=== PATIENT | male | born 1960 | race Caucasian/White ===

== ENCOUNTER 2019-07-24 13:52 | Observation (INO) | payer OTHER, SELFPAY ==
[2019-07-24] VITALS (7 sets, daily range): BP systolic 115–143; BP diastolic 56–73; PULSE 62–76; RESP 16–18; TEMP 36.5–36.8; O2SAT 96–100; BMI 21.8
--- NOTE | ~2019-07-24 | CT_ITS ---
EXAMINATION: CT BRAIN W/O DATE: 07/24/2019 14:49 INDICATION: Headache. TECHNIQUE: Computed tomography (CT) of the head was performed without intravenous contrast. The dose- length product was 605.33 mGy-cm. The mA was adjusted according to patient size. Iterative reconstruc tion technique was employed. COMPARISON: No prior studies for comparison. FINDINGS: Normal brain parenchymal volume for age. Normal cooper-white differentiation. No acute intrac ranial hemorrhage, infarction, mass or mass effect. No ventriculomegaly or midline shift. Midline sagittal images demonstrate a normal corpus callosum, c raniovertebral junction and sella turcica. Basilar cisterns are patent. Paranasal sinuses and mastoids are pneumatized. No depressed skull fractures. IMPRESSION: 1. No acute intracranial abnormality. Reviewed, dictated and finalized at location A.
--- NOTE | ~2019-07-24 | NM_ITS ---
EXAMINATION: NM criselda stress w perfusion DATE: 07/25/2019 11:32 INDICATION: Chest pain. TECHNIQUE: Rest images were obtained following intravenous administration of 10 mCi Tc99m tetrofosmin (Myoview). The patient was infused intravenously with Lexiscan (regadenoson). Then, 31.77 mCi Tc99m tetrofosmin (Myoview) was administered intravenously, and stress images were obtained. Data was recon structed into short axis and horizontal and vertical long axis SPECT images. Gated SPECT images were also obtained. COMPARISON: Chest CT 10/26/2010 FINDINGS: There is no definite reversible or fixed perfusion abnormality to suggest ischemia or infar ction. There is no segmental wall motion abnormality. Left ventricular ejection fraction measures 5 6%. IMPRESSION: 1. No definite ischemia or infarct. 2. Normal left ventricular ejection fraction measuring 56%. Reviewed, dictated and finalized at location A.
--- NOTE | ~2019-07-24 | XR_ITS ---
EXAMINATION: XR chest 2V 07/24/2019 14:54 INDICATION: Shortness of breath. Midsternal chest pain. History of smoking. PROCEDURE: 2 view chest COMPARISON: 10/08/2008 FINDINGS: The lungs are clear. The cardiomediastinal silhouette is within normal limits. There are no pleural effusions. There is no pneumothorax suspected. There is calcified mediastinal lymph node s consistent with chronic granulomatous disease. The lungs are hyperinflated which is consistent with , but not diagnostic of chronic obstructive pulmonary disease. IMPRESSION: 1: NO ACUTE CARDIOPULMONARY DISEASE. Reviewed, dictated and finalized at location A.
--- NOTE | 2019-07-24 14:20 | ECG_ITS ---
Measurements Intervals [place] Rate: 72 P: 66 VA: 142 QRS: -23 QRSD: 146 T: 33 QT: 402 QTc: 442 Interpretive Statements SINUS RHYTHM RIGHT BUNDLE BRANCH BLOCK VOLTAGE CRITERIA FOR LVH MINIMAL Q WAVES- LATERAL LEADS ABNORMAL ECG Electronically Signed On 07-24-2019 16:02:13 CDT by James Desouza D.O.
--- NOTE | 2019-07-24 14:21 | ED.CHESTPAIN ---
HPI - Chest Pain General Chief Complaint: Syncope Stated Complaint: NEAR SYNCOPAL EVENT Time Seen by Provider: 07/24/19 14:05 Source: patient Limitations: no limitations History of Present Illness HPI narrative: Pt c/o chest pain, left chest, mild, non radiating, started today, accompanied by a near syncopal episode at work and dizziness. MD complaint: chest pain Pain radiation: none Relieving factors: nothing Exacerbating factors: nothing Treatment prior to arrival: none Risk Factors Coronary artery disease risk factors: smoking history, hyperlipidemia and hypertension Related Data Home Medications Medication Instructions Recorded Confirmed No Home Medications 07/24/19 07/24/19 Allergies Allergy/AdvReac Type Severity Reaction Status Date / Time No Known Allergies Allergy Verified 07/24/19 17:40 Review of Systems Review of Systems: All systems reviewed & are unremarkable except as noted in HPI and below Constitutional: Constitutional: Denies body ache(s), Denies chills, Denies excessive sweating, Denies fatigue, Denies fever(s), Denies headache(s), Denies lethargy, Denies malaise, Denies weakness and Denies weight loss Eyes: Eyes: Denies blurry vision, Denies change in vision and Denies loss of vision ENT: Denies dizziness, Denies ear discharge, Denies headache(s), Denies lip swelling, Denies epistaxis, Denies nasal congestion, Denies neck pain, Denies throat swelling and Denies tongue swelling Cardiovascular: Cardiovascular: Denies diaphoresis, Denies rapid heart rate, Denies edema, Denies irregular heart rhythm, Denies lightheadedness, Denies palpitations, Denies dyspnea and Denies dyspnea on exertion Respiratory: Respiratory: Denies chest congestion, Denies cough, Denies hemoptysis, Denies dyspnea and Denies dyspnea on exertion Gastrointestinal: Gastrointestinal: Denies abdominal pain, Denies melena, Denies hematochezia, Denies diarrhea, Denies nausea, Denies vomiting and Denies hematemesis Musculoskeletal: Musculoskeletal: Denies abnormal gait, Denies deformity, Denies joint swelling, Denies limited range of motion, Denies neck pain and Denies numbness Neurologic: Denies Abnormal speech present, Denies abnormal gait, Denies confusion, Denies headache(s), Denies focal weakness, Denies loss of vision, Denies numbness, Denies Other visual disturbances, Denies Sensory deficit (Neuro) and Denies weakness Psychiatric: Psychiatric: Denies confusion, Denies depression, Denies auditory hallucinations, Denies homicidal ideation and Denies suicidal ideation Endocrine: Endocrine: Denies cold intolerance, Denies excessive sweating, Denies fatigue, Denies heat intolerance and Denies palpitations Hematologic/Lymphatic: Hematologic/Lymphatic: Denies easy bleeding and Denies easy bruising Allergic/Immunologic: Allergic/Immunologic: Denies lip swelling, Denies throat swelling and Denies tongue swelling PMFSH Past Medical History Medical History (Updated 07/24/19 @ 20:51 by Irasema Hylton NP) Hyperlipidemia No longer takes his cholesterol medicine. Surgical History Surgical History (Updated 07/24/19 @ 20:51 by Irasema Hylton NP) H/O rectal polypectomy History of back surgery Lower back 1996 Family History Family History Mother Diabetes mellitus Congestive heart failure Acute myocardial infarction Grandparent Congestive heart failure Cerebrovascular accident Acute myocardial infarction Social History Social History (Updated 07/24/19 @ 20:54 by Irasema Hylton NP) Social History: Patient lives with his Joyce who is his durable power of foreign language teacher for healthcare. He has 3 children. The patient smokes anywhere from half a pack to pack a cigarettes a day. He works at [employer] in the [employer]. Patient desires to be a full code. He does not use any alcohol marijuana or illicit drugs. Smoking packs per day: 1 Smoking cigarettes pe
[2019-07-24 14:33] LABS: Basophils Absolute Auto 0.1 K/mm3 (0.0-0.1); Basophils Percent Auto 1.1 % (0.2-1.2); Eosinophils Absolute Auto 0.3 K/mm3 (0-0.3); Eosinophils Percent Auto 3.4 % (0-4.4); Hematocrit 43.9 % (42.0-52.0); Hemoglobin 14.8 g/dL (14.0-18.0); Immature Granulocyte Absolute 0.04 K/mm3 (0.00-0.031); Immature Granulocyte Percent A 0.4 % (0-0.5); Lymphocytes Absolute Auto 3.34 K/mm3 (0.9-3.2); Lymphocytes Percent Auto 34.3 % (18.3-44.2); Mean Corpuscular HGB Conc 33.7 g/dl (32-36); Mean Corpuscular Hemoglobin 31.4 pg (26-34); Mean Platelet Volume 10.1 fl (7.4-10.4); Monocytes Absolute Auto 0.8 K/mm3 (0.1-0.6); Monocytes Percent Auto 7.7 % (2.6-8.5); Neutrophils Absolute Auto 5.2 K/mm3 (1.3-6.7); Neutrophils Percent Auto 53.1 % (45.5-73.1); Platelet Count Result 240 k/mm3 (150-375); Red Blood Count 4.72 M/mm3 (4.6-6.20); Red Cell Distribution Width 13.5 % (11.5-14.5); White Blood Count 9.7 K/mm3 (4.5-10.0)
[2019-07-24] MEDS: ASPIRIN 81 MG CHEWABLE TABLET 324 MG PO (14:41)
--- NOTE | 2019-07-24 14:41 | PC.NURSE ---
Pt given 243mg of aspirin, as has already taken 81mg po at home.
[2019-07-24 14:44] LABS: INR 0.9; Prothrombin Time 11.7 Seconds (11.1-14.7)
[2019-07-24 14:45] LABS: Blood Urea Nitrogen 27 mg/dL (9-20); Calcium 8.8 mg/dL (8.4-10.2); Carbon Dioxide 26 mmol/L (22-30); Chloride 105 mmol/L (98-107); Estimated CRCL calculation 91 ml/min; Estimated Glomerular Filt Rate > 60; Glucose 138 mg/dL (75-110); Partial Thromboplastin Time 28.4 SECONDS (22.3-36.8); Potassium 3.9 mmol/L (3.4-5.0); Sodium 137 mmol/L (137-145)
[2019-07-24 14:57] LABS: Troponin I < 0.012 ng/mL (0.000-0.034)
[2019-07-24] MEDS: SODIUM CHLORIDE 0.9% IV 1,000 ML 999 ML IV CONT (15:32)
--- NOTE | 2019-07-24 15:59 | PC.NURSE ---
Attempt to call report to IMU, floor unable to take.
--- NOTE | 2019-07-24 18:06 | ADMGEN ---
This patient, Jonathan Aguirre, was admitted to IMU Room 202-01 on 07/24/2019 at 1625. Patient/family oriented to hospital policies and general routines including ID bracelet, bed and alarms, visiting hours, pain management, procedures, bathroom and other care routines, personal items, smoking policy, room service/diet, and visiting hours. Valuables list has been completed. Information on how to activate the Rapid Response Team has been discussed. Patient/Family are encouraged to report perceived risks to care and to ask questions if they do not understand what they are told or what they should do.
[2019-07-24 18:14] LABS: Troponin I < 0.012 ng/mL (0.000-0.034)
--- NOTE | 2019-07-24 20:42 | PM.IMHP ---
H&P: HPI History of Present Illness Chief complaint: chest pain,near syncope Narrative: Jonathan Aguirre is a 59 year old male who tells me that he has been having chest pain on and off for the last couple years. The patient stated that he has had 2 stress test in the past that were inconclusive. He stated that he had a treadmill stress test the patient stated when he had a stress test in the past he could not get this heart rate up. Patient stated that today he went to lift his arms up he did not have anything in his arms but felt this sharp pain that started around his chest it encases chest moved up around his neck and his back. He was short of breath with it. And resolved on his own. Troponins have been negative so far. Patient was only given IV fluids and an aspirin by ED physician. Patient has no further complaints of any chest pain. Patient stated that he has some fullness in the back of his head which is chronic. Date of service is 07/24/2019 Review of Systems Review of Systems: All systems reviewed & are unremarkable except as noted in HPI and below Constitutional: Constitutional: Reports as per HPI and Reports no additional constitutional complaints Eyes: Eyes: Reports as per HPI and Reports no additional eye complaints ENT: Reports system reviewed and no additional complaints, except as documented and Reports Normal hearing present Cardiovascular: Cardiovascular: Reports no additional cardiovascular complaints Respiratory: Respiratory: Reports no additional respiratory complaints and Reports no additional respiratory complaints Gastrointestinal: Gastrointestinal: Reports as per HPI and Reports no additional gastrointestinal complaints Musculoskeletal: Musculoskeletal: Reports no additional musculoskeletal complaints Integumentary/Breasts: Skin/Breast: Reports system reviewed and no additional complaints, except as docu and Reports as per HPI Neurologic: Reports system reviewed and no additional complaints, except as documented, Reports as per HPI and Reports Normal hearing present Psychiatric: Psychiatric: Reports no additional psychiatric complaints and Reports as per HPI Endocrine: Endocrine: Reports no additional endocrine complaints Hematologic/Lymphatic: Hematologic/Lymphatic: Reports no additional hematologic/lymphatic complaints Allergic/Immunologic: Allergic/Immunologic: Reports no additional allergic/immunologic complaints [facility] Past Medical History Medical History (Updated 07/24/19 @ 20:51 by Irasema Hylton NP) Hyperlipidemia No longer takes his cholesterol medicine. Surgical History Surgical History (Updated 07/24/19 @ 20:51 by Irasema Hylton NP) H/O rectal polypectomy History of back surgery Lower back 1995 Family History Family History Mother Diabetes mellitus Congestive heart failure Acute myocardial infarction Grandparent Congestive heart failure Cerebrovascular accident Acute myocardial infarction Social History Social History (Updated 07/24/19 @ 20:54 by Irasema Hylton NP) Social History: Patient lives with his Joyce who is his durable power of tax associate attorney for healthcare. He has 3 children. The patient smokes anywhere from half a pack to pack a cigarettes a day. He works at [employer] in the [employer]. Patient desires to be a full code. He does not use any alcohol marijuana or illicit drugs. Smoking packs per day: 1 Smoking cigarettes per day: 20.0 Years smoked: 30 Smoking pack-years: 30.00 Smoking status: Current every day smoker Tobacco type: cigarettes Second hand tobacco smoke exposure: No Alcohol intake: current Drinks per week: 6 Substance use: never Occupation/Education: occupation Gender identity (if verbalized by the patient): Male Spiritual care concerns: No Agree to blood products: Yes Meds Home Medications and Allergies Home Medications Medicati
[2019-07-24 21:30] LABS: Troponin I < 0.012 ng/mL (0.000-0.034)
[2019-07-25] VITALS (7 sets, daily range): BP systolic 116–134; BP diastolic 65–83; PULSE 61–96; RESP 18; TEMP 36.4–36.7; O2SAT 98
[2019-07-25 04:43] LABS: Basophils Absolute Auto 0.1 K/mm3 (0.0-0.1); Eosinophils Absolute Auto 0.4 K/mm3 (0-0.3); Eosinophils Percent Auto 4.7 % (0-4.4); Hematocrit 43.3 % (42.0-52.0); Hemoglobin 14.3 g/dL (14.0-18.0); Immature Granulocyte Absolute 0.05 K/mm3 (0.00-0.031); Immature Granulocyte Percent A 0.5 % (0-0.5); Lymphocytes Absolute Auto 3.58 K/mm3 (0.9-3.2); Lymphocytes Percent Auto 39.1 % (18.3-44.2); Mean Corpuscular Hemoglobin 30.6 pg (26-34); Mean Corpuscular Volume 92.7 fl (80-100); Monocytes Absolute Auto 0.8 K/mm3 (0.1-0.6); Monocytes Percent Auto 8.2 % (2.6-8.5); Neutrophils Absolute Auto 4.3 K/mm3 (1.3-6.7); Neutrophils Percent Auto 46.5 % (45.5-73.1); Platelet Count Result 238 k/mm3 (150-375); Red Blood Count 4.67 M/mm3 (4.6-6.20); Red Cell Distribution Width 13.6 % (11.5-14.5); White Blood Count 9.2 K/mm3 (4.5-10.0)
[2019-07-25 04:57] LABS: Alanine Aminotransferase 25 U/L (4-50); Albumin Level 3.9 g/dL (3.5-5.1); Alkaline Phosphatase 87 U/L (38-126); Aspartate Amino Transferase 26 U/L (17-59); Bilirubin,Total 0.5 mg/dL (0.2-1.3); Blood Urea Nitrogen 20 mg/dL (9-20); Calcium 8.7 mg/dL (8.4-10.2); Carbon Dioxide 26 mmol/L (22-30); Chloride 109 mmol/L (98-107); Cholesterol 208 mg/dL (0-200); Estimated CRCL calculation 91 ml/min; Estimated Glomerular Filt Rate > 60; Glucose 98 mg/dL (75-110); HDL Direct 37 mg/dL; Magnesium 2.1 mg/dL (1.6-2.3); Potassium 4.1 mmol/L (3.4-5.0); Sodium 138 mmol/L (137-145); Triglycerides 193 mg/dL (<150)
[2019-07-25 05:07] LABS: LDL Cholesterol Direct 132 mg/dL
[2019-07-25] MEDS: ASPIRIN 81 MG ENTERIC TABLET PO (08:41)
--- NOTE | 2019-07-25 10:23 | PM.DS ---
DS: Diagnosis Admitting Diagnosis Admitting Diagnosis: Chest pain, unspecified Discharge Diagnosis (1) Chest pain in adult: Code(s): R07.9 - Chest pain, unspecified Status: Acute Assessment and Plan: Pain atypical for angina and present intermittently for 2 years TnI negative EKG w/o ischemic changes Lexiscan stress negative Home for outpatient f/u (2) Near syncope: Code(s): R55 - Syncope and collapse Status: Acute Assessment and Plan: Patient stated that he had a fullness in his neck and had sharp pain to that made him feel like he was going to pass out. No further symptoms Stay well hydrated and avoid rapd position changes DS: Summary Hospital Course Reason for hospitalization: Chest pain Hospital Course: Present with atypical chest pain. No Flick significant symptoms are hospitalization. Troponin levels, EKG, and Lexiscan stress test were unremarkable. Time Spent with Patient Time attestation: Total time spent providing and/or coordinating discharge services: 35 min Exam Narrative: Exam Narrative: HEENT: EOMI, PERRL, sclerae nonicteric, pharyngeal mucosa pink and intact NECK: No JVD, adenopathy, or thyromegaly CHEST: Clear to auscultation. Normal effort. HEART: NL S1/S2, regular, no murmur ABDOMEN: BS+, soft, nontender, no mass, no bruits EXTREMITIES: No cyanosis, edema, or clubbing NEUROLOGIC: CN intact and symmetric to inspection. MUSCULOSKELETAL: Tone and strength symmetric. PSYCH: Alert. Oriented to person, place, and time. DS: Data Data Completed and Pending Labs on day of discharge: Labs from last 24 hours 07/25/19 07/25/19 07/25/19 04:05 04:05 04:05 WBC 9.2 RBC 4.67 Hgb 14.3 Hct 43.3 MCV 92.7 MCH 30.6 MCHC 33.0 RDW 13.6 Plt Count 238 MPV 10.0 Immature Gran % (Auto) 0.5 Neut % (Auto) 46.5 Lymph % (Auto) 39.1 [place] % (Auto) 8.2 Eos % (Auto) 4.7 H Baso % (Auto) 1.0 Lymph # (Auto) 3.58 H [place] # (Auto) 0.8 H Eos # (Auto) 0.4 H Baso # (Auto) 0.1 Abs Immat Gran (auto) 0.05 H Absolute Neuts (auto) 4.3 Absolute Nucleated RBC 0.0 Nucleated RBC % 0.0 PT INR APTT Sodium 138 Potassium 4.1 Chloride 109 H Carbon Dioxide 26 BUN 20 Creatinine 0.70 Estim Creat Clear Calc 91 Estimated GFR > 60 Glucose 98 Calcium 8.7 Magnesium 2.1 Total Bilirubin 0.5 AST 26 ALT 25 Alkaline Phosphatase 87 Troponin I Total Protein 7.0 Albumin 3.9 Triglycerides 193 H Cholesterol 208 H LDL Cholesterol Direct 132 HDL Direct 37 TSH (Reflex) 2.450 07/24/19 07/24/19 07/24/19 20:36 17:45 14:28 WBC RBC Hgb Hct MCV MCH MCHC RDW Plt Count MPV Immature Gran % (Auto) Neut % (Auto) Lymph % (Auto) [place] % (Auto) Eos % (Auto) Baso % (Auto) Lymph # (Auto) [place] # (Auto) Eos # (Auto) Baso # (Auto) Abs Immat Gran (auto) Absolute Neuts (auto) Absolute Nucleated RBC Nucleated RBC % PT INR APTT Sodium 137 Potassium 3.9 Chloride 105 Carbon Dioxide 26 BUN 27 H Creatinine 0.70 Estim Creat Clear Calc 91 Estimated GFR > 60 Glucose 138 H Calcium 8.8 Magnesium Total Bilirubin AST ALT Alkaline Phosphatase Troponin I < 0.012 < 0.012 < 0.012 Total Protein Albumin Triglycerides Cholesterol LDL Cholesterol Direct HDL Direct TSH (Reflex) 07/24/19 07/24/19 14:28 14:28 WBC 9.7 RBC 4.72 Hgb 14.8 Hct 43.9 MCV 93.0 MCH 31.4 MCHC 33.7 RDW 13.5 Plt Count 240 MPV 10.1 Immature Gran % (Auto) 0.4 Neut % (Auto) 53.1 Lymph % (Auto) 34.3 [place] % (Auto) 7.7 Eos % (Auto) 3.4 Baso % (Auto) 1.1 Lymph # (Auto) 3.34 H [place] # (Auto) 0.8 H Eos # (Auto) 0.3 Baso # (Auto) 0.1 Abs Immat Gran (auto) 0.04 H Absolute Neuts (auto) 5.2 Absol
--- NOTE | 2019-07-25 20:41 | EST_ITS ---
Patient Info Name: Jonathan Aguirre Age: 59 years : 1960 Gender: Male Ht: 67 in Wt: 145 lbs BSA: 1.77 m2 Exam Date: 07/25/2019 10:23 AM Patient Status: Inpatient Admit Date: 07/24/2019 Staff Ordering Physician: Irasema Hylton NP Attending Provider: Erick Tran MD Exercise Technologist: Mervin Mendez RDCS, RT Exercise Physician: James Desouza DO Exam Type: CA stress criselda w NM Study Info A regadenoson stress test was performed. Summary 1. 1. Negative lexiscan stress test for ischemic ST changes by ECG criteria. 2. 2. Baseline mild hypertension. 3. 3. Nuclear scan to follow and will be reported separately. Please correlate with it. 4. 4. Patient informed of the above results. Protocol: Lexiscan Stress ECG Details Stage: REST Duration (min): 0 min : 47 sec HR (bpm): 59 SBP (mmHg): 141 DBP (mmHg): 85 Stage: REST Duration (min): 5 min : 42 sec HR (bpm): 60 SBP (mmHg): 141 DBP (mmHg): 85 Stage: STAGE 1 Duration (min): 1 min : 0 sec HR (bpm): 70 SBP (mmHg): 140 DBP (mmHg): 83 Stage: RECOVERY Duration (min): 1 min : 0 sec HR (bpm): 80 SBP (mmHg): 140 DBP (mmHg): 83 Stage: RECOVERY Duration (min): 2 min : 0 sec HR (bpm): 77 SBP (mmHg): 140 DBP (mmHg): 83 Stage: RECOVERY Duration (min): 3 min : 0 sec HR (bpm): 76 SBP (mmHg): 125 DBP (mmHg): 77 Stage: RECOVERY Duration (min): 3 min : 54 sec HR (bpm): 75 SBP (mmHg): 125 DBP (mmHg): 77 Rest HR: 60 bpm Peak HR: 82 bpm Rest Sys BP: 141 mmHg Peak Sys BP: 140 mmHg Max Pred HR: 162 bpm % Max Pred HR: 51 % Target HR: 138 bpm Max RPP: 11,480 bpm*mmHg Termination Reason: Completed protocol Cardiac Symptoms: Dizziness, upset stomach Total Time: 1 min : 0 sec Rest [place] BP: 85 mmHg Peak [place] BP: 83 mmHg Total Dose: 0.4 mg Resting ECG Sinus rhythm, RBBB. Stress ECG No ST changes. Arrhythmias None. Report Signatures
== END 2019-07-25 13:00 | disposition home or self-care (01) ==
LOC: ANHED 15:36 → ANHIMU 07-25 10:27
PROVIDERS: Nurse Practitioner; Admitting Provider Family Medicine; Emergency Provider Emergency Medicine; PCP Nurse Practitioner Family; Visit Provider Internal Medicine
DX: R07.89 Other chest pain (principal); R55 Syncope and collapse; F17.210 Nicotine dependence, cigarettes, uncomplicated
CPT/HCPCS: 36415; 70450; 71046; 78452; 80048; 80053; 80061; 83735; 84443; 84484; 85025; 85610; 85730; 93005; 93017; 96360; 99285; A9270; A9502; G0378; J2785; J7030

== ENCOUNTER 2023-06-27 11:22 | Emergency (ER) | payer BC, SELFPAY ==
--- NOTE | 2023-06-27 11:27 | ED.SKABFB ---
HPI - Skin/Abscess/Foreign Bdy General Chief complaint: Skin/Abscess/Foreign Body Stated complaint: Spider Bite On Neck Time Seen by Provider: 06/27/23 11:41 Source: patient and RN notes reviewed Mode of arrival: ambulatory Limitations: no limitations History of Present Illness HPI narrative: 62-year-old male presents with concern for a spider bite on his right neck. Reports he noticed the spots after he shaved. He does not of any bug have bit him. He reports he use Benadryl and antibiotic ointment. He denies other rash, redness, warmth MD complaint: other (Redness) Related Data Allergies Allergy/AdvReac Type Severity Reaction Status Date / Time No Known Allergies Allergy Verified 05/21/21 16:48 Review of Systems Review of Systems: CONSTITUTIONAL: Denies malaise, chills, sweats, or fever. ENT: Denies rhinorrhea, congestion, sinus pain, otalgia or sore throat. CARDIOVASCULAR: Denies chest pain, palpitations, or edema. RESPIRATORY: Denies cough or dyspnea. SKIN: Reports bumps on the right neck MUSCULOSKELETAL: Denies myalgia. NEUROLOGIC: Denies headache. All systems reviewed & are unremarkable except as noted in HPI and below PMFSH Past Medical History Medical History (Updated 06/27/23 @ 11:46 by Francesca Ivy NP) Hyperlipidemia No longer takes his cholesterol medicine. Surgical History Surgical History (System 05/21/21 @ 16:48 by Shannan Gomez) H/O rectal polypectomy History of back surgery Lower back 1996 Family History Family History (System 05/21/21 @ 16:48 by Shannan Gomez) Mother Diabetes mellitus Congestive heart failure Acute myocardial infarction Grandparent Congestive heart failure Cerebrovascular accident Acute myocardial infarction Social History Social History (System 05/21/21 @ 16:48 by Shannan Gomez) Social History: Patient lives with his Joyce who is his durable power of cask maker for healthcare. He has 3 children. The patient smokes anywhere from half a pack to pack a cigarettes a day. He works at [employer] in the [employer]. Patient desires to be a full code. He does not use any alcohol marijuana or illicit drugs. Smoking packs per day: 1 Smoking cigarettes per day: 20.0 Years smoked: 30 Smoking pack-years: 30.00 Smoking status: Current every day smoker Tobacco type: cigarettes Second hand tobacco smoke exposure: No Alcohol intake: current Drinks per week: 6 Substance use: never Occupation/Education: occupation Gender identity (if verbalized by the patient): Male Spiritual care concerns: No Agree to blood products: Yes Comments At time of signature, agree with nursing past medical, surgical, social and family history. There is no relevant family history pertinent to the presenting complaint Exam Narrative: GENERAL: Well-appearing, well-nourished, and in no acute distress. HEAD: Normocephalic, atraumatic. EYES: PERRLA, conjunctivae clear, and EOMI. ENT: Mucous membranes moist. Oropharynx without edema, erythema or lesions. NECK: Supple. No lymphadenopathy CHEST: Clear to auscultation. No respiratory distress. HEART: Regular rate and rhythm. SKIN: Warm, dry. Cluster of 5 erythematous firm papules noted to the right neck without fluctuation, drainage NEURO: Alert and oriented x3. PSYCH: Normal mood and affect Course Course Emergency Course: Patient is aware of diagnosis, understands and agrees to treatment plan. Anticipatory guidance given. Patient agrees to follow-up as directed and is aware of reasons to seek care at the emergency department. Portions of this record may have been created with voice recognition software Level of Care: Express Care Visit Vital Signs Vital signs: Reviewed. MDM - Skin/Abscess/Foreign Bdy MDM Narrative Medical decision making narrative: Does not appear at this time to be erythema multiforme, bullous, SJS, TEN; no evidence at this time to suggest RMSF, NSTI,
[2023-06-27 11:36] VITALS: BP 136/77; PULSE 80; RESP 16; TEMP 37.1; O2SAT 100
== END 2023-06-27 11:49 | disposition home or self-care (01) ==
PROVIDERS: Emergency Provider Nurse Practitioner
DX: L73.9 Follicular disorder, unspecified (principal); F17.210 Nicotine dependence, cigarettes, uncomplicated
CPT/HCPCS: 99213; G0463

== ENCOUNTER 2024-08-31 20:38 | Observation (INO) | payer BC, SELFPAY ==
[2024-08-31] VITALS (14 sets, daily range): BP systolic 133–167; BP diastolic 71–91; PULSE 57–71; RESP 11–18; TEMP 36.5; O2SAT 97–99
--- NOTE | ~2024-08-31 | CT_ITS ---
Clinical Indication: Chest pain, abdominal pain CT Scan of the Chest, Abdomen, and Pelvis with Contrast: Technique: Contiguous sections were acquired throughout the chest, abdomen, and pelvis after intraven ous administration of 100 cc of Omnipaque 350. Dose reduction technique was used on this scan by mere medrano automated exposure control and iterative reconstruction technique. The dose-length product (DL P) was 415.71 mGy-cm. Findings: There is no evidence of any significant mediastinal, hilar or axillary lymphadenopathy. The mediastin al soft tissues appear normal. No pulmonary embolus. No aortic aneurysm or dissection. There is no evidence of pleural or pericardial effusion. Moderate emphysema present. Probable focal scarring in the right upper lobe. The liver, spleen, pancreas, gallbladder, adrenals and kidneys are within normal limits. There are at herosclerotic calcifications of the aorta. No lymphadenopathy. No bowel obstruction or bowel wall thickening. There is no evidence to suggest acute appendicitis. Urinary bladder is unremarkable. Prostate gland enlarged. No ascites. Impression: No acute abnormality. Moderate emphysema. Enlarged prostate gland. Reviewed, dictated and finalized at [facility]. Impression: No acute abnormality. Moderate emphysema. Enlarged prostate gland.
--- NOTE | ~2024-08-31 | XR_ITS ---
Portable chest x-ray Comparison: 07/24/2019 Clinical History: Chest pain Findings: Lungs are clear, without focal consolidation or pleural effusion. Stable calcified lymph n ode along the right paratracheal stripe. Cardiomediastinal silhouette is stable. Bones and soft tiss ues are unremarkable. Impression: No acute abnormality. Reviewed, dictated and finalized at location . Impression: No acute abnormality.
--- NOTE | ~2024-08-31 | MR_ITS ---
MRI of the brain Clinical History: TIA Technique: Axial and sagittal T1-weighted images were acquired. These were followed by axial T2-weigh guanaco, diffusion weighted, gradient, and FLAIR images. Following intravenous administration of 13 cc Pr oHance gadolinium, T1-weighted fat-sat imaging was performed in the axial and coronal planes. Findings: No abnormal signal seen in the brain parenchyma. No acute infarct, intracranial hemorrhage, or mass lesion. Ventricles and some arachnoid spaces are unremarkable. Orbits are unremarkable. Paranasal sinuses and mastoid air cells are clear. Major intracranial flow voids are intact. Sagittal midline structures are intact. No abnormal postcontrast enhancement identified. IMPRESSION: Normal exam. Reviewed, dictated and finalized at location . IMPRESSION: Normal exam.
--- NOTE | ~2024-08-31 | CT_ITS ---
CT ANGIOGRAM NECK AND HEAD History: Confusion. Technique: Serial spiral axial images through the head and neck were obtained during arterial phase I V injection of 100 cc of Omnipaque 350. 3-D postprocessing and MIP images were then reconstructed on the remote workstation. Dose reduction technique was used on this scan by utilizing automated exposur e control and iterative reconstruction technique. The dose-length product (DLP) was 1106.16 mGy-cm. CTA neck findings: Bilateral vertebral arteries are patent. Bilateral common carotid, internal carot id, and external carotid arteries are patent. There are calcified plaques at the proximal left production internship al carotid artery, without significant stenosis. There are also calcified plaques at the proximal rig ht internal carotid artery, again without significant stenosis. No large vessel occlusion. No aneurys m. The proximal right internal carotid artery demonstrates 0% stenosis relative to the normal distal artery lumen diameter. The proximal left internal carotid artery demonstrates 0% stenosis relative to the normal distal artery lumen diameter. Moderate emphysema in the lung apices. CTA head findings: Distal vertebral arteries, basilar artery, and posterior cerebral arteries are pat ent. Distal internal carotid arteries, middle cerebral arteries, and anterior cerebral arteries are p atent. No large vessel occlusion or stenosis. No aneurysm. Impression: No significant abnormality identified. Reviewed, dictated and finalized at location [facility]. Impression: No significant abnormality identified.
--- NOTE | ~2024-08-31 | CT_ITS ---
Non-contrast Head CT History: CVA Technique: Axial non-contrast imaging of the brain was performed. Dose reduction technique was used on this scan by utilizing automated exposure control and iterative reconstruction technique. The dose -length product (DLP) was 681.00 mGy-cm. Findings: There is no evidence of intracranial hemorrhage, mass lesion, or acute infarct. Brain par enchyma appears normal. The ventricles and subarachnoid spaces are normal in size. The calvarium ap pears normal. The visualized paranasal sinuses and mastoid air cells are clear. Impression: No significant abnormality seen. Reviewed, dictated and finalized at location . Impression: No significant abnormality seen.
[2024-08-31 20:49] LABS: Glucose Point of Care 91 mg/dl (65-105)
--- NOTE | 2024-08-31 20:54 | ECG_ITS ---
Test Date: 2024-08-31 20:45:35 Measurements Intervals [place] Rate: 69 P: 127 W[place]: 146 QRS: 215 QRSD: 164 T: 146 QT: 413 QTc: 444 Interpretive Statements SINUS RHYTHM LIMB LEAD REVERSAL RIGHT BUNDLE BRANCH BLOCK BASELINE ARTIFACT- I, II, III, AVR, AVL, AVF, V1-V6 ABNORMAL ECG No previous ECG available for comparison Electronically Signed On 09-01-2024 07:22:13 CDT by James Desouza D.O.
[2024-08-31 21:12] LABS: Basophils Absolute Auto 0.1 K/mm3 (0.0-0.1); Eosinophils Absolute Auto 0.8 K/mm3 (0-0.3); Eosinophils Percent Auto 6.9 % (0-4.4); Hematocrit 43.1 % (42.0-52.0); Hemoglobin 14.4 g/dL (14.0-18.0); Immature Granulocyte Absolute 0.04 K/mm3 (0.00-0.031); Immature Granulocyte Percent A 0.4 % (0-0.5); Lymphocytes Percent Auto 46.1 % (18.3-44.2); Mean Corpuscular HGB Conc 33.4 g/dl (32-36); Mean Corpuscular Hemoglobin 31.1 pg (26-34); Mean Corpuscular Volume 93.1 fl (80-100); Mean Platelet Volume 9.2 fl (7.4-10.4); Monocytes Absolute Auto 1.1 K/mm3 (0.1-0.6); Monocytes Percent Auto 10.2 % (2.6-8.5); Neutrophils Absolute Auto 3.8 K/mm3 (1.3-6.7); Neutrophils Percent Auto 35.4 % (45.5-73.1); Platelet Count Result 227 k/mm3 (150-375); Red Blood Count 4.63 M/mm3 (4.6-6.20); Red Cell Distribution Width 13.1 % (11.5-14.5); White Blood Count 10.8 K/mm3 (4.5-10.0)
[2024-08-31] MEDS: ASPIRIN 81 MG CHEWABLE TABLET 324 MG PO (21:18)
[2024-08-31 21:21] LABS: Alanine Aminotransferase 23 U/L (6-50); Albumin Level 4.4 g/dL (3.5-5.1); Alkaline Phosphatase 85 U/L (38-126); Anion Gap 12 mmol/L (4-12); Aspartate Amino Transferase 33 U/L (17-59); Bilirubin,Total 0.3 mg/dL (0.2-1.3); Blood Urea Nitrogen 10 mg/dL (9-20); Calcium 8.9 mg/dL (8.4-10.2); Carbon Dioxide 20 mmol/L (22-30); Chloride 99 mmol/L (98-107); Estimated CRCL calculation 79 ml/min; Estimated Glomerular Filt Rate > 60; Glucose 92 mg/dL (65-110); Lipase 582 U/L (23-300); Sodium 131 mmol/L (137-145); Total Protein 7.5 g/dL (6.3-8.2)
[2024-08-31 21:22] LABS: INR 0.9; Prothrombin Time 12.5 Seconds (11.1-14.7)
[2024-08-31 21:23] LABS: Partial Thromboplastin Time 32.5 Seconds (22.3-36.8)
[2024-08-31 21:33] LABS: Troponin I < 0.012 ng/mL (0.000-0.034)
--- NOTE | 2024-08-31 22:10 | ED_ITS ---
HPI - Chest Pain General Chief Complaint: Chest Pain Stated Complaint: headache, numbness tingling down shoulder (L) Time Seen by Provider: 08/31/24 21:47 History of Present Illness HPI narrative: 64-year-old male who does not seek medical attention and does not have any chronic medical conditions to his knowledge presents to the emergency department with left-sided headache, neck pain, shoulder pain, subjective tingling in his left arm and transient confusion. Symptoms started around 9:00 a.m. while he was driving. His family members noted that he was getting lost and not able to drive himself appropriately. Patient was confused at that time and complaining of a headache that was throbbing in quality radiating into his left shoulder. Infusion was transient and resolved but he is still having pain especially in his left shoulder according to him. He also endorses a mild left-sided headache. States he has left-sided chest discomfort as well that comes and goes associated with the symptoms but also been more chronic and he takes aspirin when it comes on. No history of stroke or TIA to his knowledge. Symptom onset 9:00 a.m. no complaints yesterday. Denies any nausea, vomiting, abdominal pain, back pain, fever, chills, shortness of breath. No trauma or injury. He does endorse significant alcohol intake as well as smoking. He does endorse drinking today and yesterday as well as smoking a pack a day. Related Data Home Medications ?Medication ?Instructions ?Recorded ?Confirmed ?Last Taken ?Type ibuprofen 200 mg capsule 400 mg PO Q4H PRN pain 09/01/24 09/01/24 Unknown History Allergies Allergy/AdvReac Type Severity Reaction Status Date / Time No Known Allergies Allergy Verified 08/31/24 21:11 Review of Systems 2 Review of Systems: As reviewed above in HPI [facility] Past Medical History Medical History (Updated 09/01/24 @ 06:58 by Orion Macias MD) Hyperlipidemia No longer takes his cholesterol medicine. 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 He has 3 children. The patient smokes anywhere from half a pack to pack a cigarettes a day. He works at [employer] in the [employer] department. Patient desires to be a full code. He does not use any alcohol marijuana or illicit drugs. Smoking packs per day: 0.5 Smoking cigarettes per day: 10.0 Years smoked: 30 Smoking pack-years: 15.00 Smoking status: Current every day smoker Tobacco type: cigarettes Second hand tobacco smoke exposure: No Alcohol intake: current Drinks per week: 12 Substance use: never Do You Feel Safe in your Home?: Yes Lack of Transportation: No Lack of Food: Never True Current Housing: I Have Housing Concerned About Future Housing: No Difficulty Paying Gas/Electric Bills: No Difficulty Paying for Meds: No Currently Unemployed: No Education: Associate Degree Difficulty w/ Childcare or Family Care: No Occupation/Education: occupation Gender identity (if verbalized by the patient): Male Spiritual care concerns: No Agree to blood products: Yes Exam 2 Narrative: GENERAL: [Well-appearing, well-nourished, and in no acute distress.] HEAD: [Normocephalic, atraumatic.] EYES: [PERRLA and EOMI.] ENT: Nares clear, no rhinorrhea or epistaxis. Mucous membranes moist. NECK: Supple. CHEST: [Clear to auscultation. No respiratory distress.] HEART: [Regular rate and rhythm]. No murmur heard. [Normal peripheral pulses.] ABDOMEN: [Soft, nondistended], [nontender], [No rigidity or guarding] EXTREMITIES: Normal range of motion. [No edema.] SKIN: Warm, dry, no rash. NEURO: Subjective paresthesias in the left upper extremity but no sensation loss. Strength 5/5 in the bilateral upper and lower extremities, no drift against gravity, no facial asymmetry or dysarthria, answering all questions appropriately. No ataxia or visual deficits. NIH is 0 PSYCH: [Normal mood and affect.] Course Vital Signs Vital signs: Vital Signs Temperature 36.5 C 08/31/24 20:44 Pulse Rate 71 08/31/24 20:44 Respiratory Rate 15 08/31/24 20:44 Blood Pressure 167/87 H 08/31/24 20:44 Pulse Oximetry 99 08/31/24 20:44 Oxygen Delivery Room Air 08/31/24 20:44 Temperature 36.6 C 09/01/24 04:34 Pulse Rate 65 09/01/24 04:34 Respiratory Rate 16 09/01/24 04:34 Blood Pressure 143/66 H 09/01/24 04:34 Pulse Oximetry 98 09/01/24 04:34 Oxygen Delivery Room Air 08/31/24 21:10 MDM - Chest Pain MDM Narrative Medical decision making narrative: 64-year-old male who does not have any chronic medical conditions to his knowledge but does not seek medical attention. Does not take any medications on a day-to-day basis. He does endorse significant alcohol intake and significant smoking. Today at around 9:00 a.m. he was driving with his family members when he had transient confusion and difficulty finding directions. He was answering questions and speaking appropriately but also complain of a left-sided headache and left-sided arm and neck and chest and shoulder pain. Confusion was transient resolved but he still having left-sided headache, shoulder pain and left-sided chest discomfort. No history of stroke TIA, no history of vascular anomalies, dissection or aneurysms to his knowledge. No history of cardiac disease. He states he went home and started drinking after the fact today with his symptoms. On his examination here he has an NIH stroke scale is 0 given that he has no functional neurological deficits, no loss of sensation, no strength deficits, no ataxia, no aphasia is answer all questions. He is endorsing subjective paresthesias but no numbness in his left upper extremity. Endorsing left-sided throbbing headache and left-sided neck chest and shoulder pain. Full range of motion on examination, no reproducible pain with palpation, 2+ pulses with warm extremities throughout. His vital signs show some mild hypertension but no other anomalies. Given his historical features considerations are for potential CVA, TIA, aortic dissection, ACS, peripheral neuropathy, cervical stenosis, electrolyte imbalances, metabolic versus toxic encephalopathy from alcohol. Given concern for aortic dissection based on pain in his chest shoulder and neck coinciding with potential neurological dysfunction he is not a thrombolytic candidate in addition with the timeline of events with symptoms starting a 9:00 a.m. and his presentation being greater than 10 hours later to the ER he is not a candidate for thrombolytics therapy either. CT angiography of the chest abdomen pelvis and neck and carotid as well as a noncontrast CT of the head was ordered for further delineation. Broad workup including troponin, EKG, chest x-ray, CBC, CMP, alcohol level ordered. CT angiography of the chest abdomen pelvis shows no acute abnormality per Radiology. CT head unremarkable. CTA is of the head and neck shows no acute abnormality. Stat read shows potential small 2 mm saccular aneurysms not identified on over read by morning radiologist. Patient's workup shows no significant leukocytosis or anemia. Normal platelet count. Normal coagulation panel. Normal electrolytes. Mildly elevated alcohol level but he does admit to drinking and clinically not intoxicated. LFTs are normal, troponin negative. Patient's symptomatology could be secondary to a transient ischemic attack and when we re-evaluated the patient he had complete symptomatic resolution. I discussed with him the risks of potential TIAs and he would benefit from admission for full stroke workup. He was amenable to this and I spoke to the hospitalist was agreeable. Neurology consult ordered, MRI with and without contrast obtained, lipid panel and A1c ordered. Medical Records Data Attestation: I reviewed the patient's medical records. Lab Data Attestation: I reviewed the patient's lab results. 08/31/24 21:06 08/31/24 21:06 Labs: Lab Results 08/31/24 08/31/24 08/31/24 Range/Units 20:44 21:05 21:06 WBC 10.8 H (4.5-10.0) K/mm3 RBC 4.63 (4.6-6.20) M/mm3 Hgb 14.4 (14.0-18.0) g/dL Hct 43.1 (42.0-52.0) % MCV 93.1 (80-100) fl MCH 31.1 (26-34) pg MCHC 33.4 (32-36) g/dl RDW 13.1 (11.5-14.5) % Plt Count 227 (150-375) k/mm3 MPV 9.2 (7.4-10.4) fl Immature Gran % (Auto) 0.4 (0-0.5) % Neut % (Auto) 35.4 L (45.5-73.1) % Lymph % (Auto) 46.1 H (18.3-44.2) % [facility] % (Auto) 10.2 H (2.6-8.5) % Eos % (Auto) 6.9 H (0-4.4) % Baso % (Auto) 1.0 (0.2-1.2) % Lymph # (Auto) 5.00 H (0.9-3.2) K/mm3 [facility] # (Auto) 1.1 H (0.1-0.6) K/mm3 Eos # (Auto) 0.8 H (0-0.3) K/mm3 Baso # (Auto) 0.1 (0.0-0.1) K/mm3 Abs Immat Gran (auto) 0.04 H (0.00-0.031) K/mm3 Absolute Neuts (auto) 3.8 (1.3-6.7) K/mm3 Absolute Nucleated RBC 0.000 (0.0-0.012) K/mm3 Nucleated RBC % 0.0 (0.0-0.2) % PT 12.5 (11.1-14.7) Seconds INR 0.9 APTT 32.5 (22.3-36.8) Seconds Sodium 131 L (137-145) mmol/L Potassium 4.0 (3.4-5.0) mmol/L Chloride 99 (98-107) mmol/L Carbon Dioxide 20 L (22-30) mmol/L Anion Gap 12 (4-12) mmol/L BUN 10 D (9-20) mg/dL Creatinine 0.76 (0.7-1.3) mg/dL Estim Creat Clear Calc 79 ml/min Estimated GFR > 60 (59 - ) Glucose 92 (65-110) mg/dL POC Capillary Glucose 91 (65-105) mg/dl Hemoglobin A1c 5.7 (<5.7) % Calcium 8.9 (8.4-10.2) mg/dL Total Bilirubin 0.3 (0.2-1.3) mg/dL AST 33 (17-59) U/L ALT 23 (6-50) U/L Alkaline Phosphatase 85 (38-126) U/L Troponin I < 0.012 (0.000-0.034) ng/mL Total Protein 7.5 (6.3-8.2) g/dL Albumin 4.4 (3.5-5.1) g/dL Triglycerides 237 H (<150) mg/dL Cholesterol 215 H (0-200) mg/dL LDL Cholesterol Direct 109 mg/dL HDL Direct 46 mg/dL Lipase 582 H (23-300) U/L TSH (Reflex) 2.040 (0.465-4.68) uIU/mL Ethyl Alcohol 173 (<10) mg/dL 08/31/24 Range/Units 23:56 WBC (4.5-10.0) K/mm3 RBC (4.6-6.20) M/mm3 Hgb (14.0-18.0) g/dL Hct (42.0-52.0) % MCV (80-100) fl MCH (26-34) pg MCHC (32-36) g/dl RDW (11.5-14.5) % Plt Count (150-375) k/mm3 MPV (7.4-10.4) fl Immature Gran % (Auto) (0-0.5) % Neut % (Auto) (45.5-73.1) % Lymph % (Auto) (18.3-44.2) % [facility] % (Auto) (2.6-8.5) % Eos % (Auto) (0-4.4) % Baso % (Auto) (0.2-1.2) % Lymph # (Auto) (0.9-3.2) K/mm3 [facility] # (Auto) (0.1-0.6) K/mm3 Eos # (Auto) (0-0.3) K/mm3 Baso # (Auto) (0.0-0.1) K/mm3 Abs Immat Gran (auto) (0.00-0.031) K/mm3 Absolute Neuts (auto) (1.3-6.7) K/mm3 Absolute Nucleated RBC (0.0-0.012) K/mm3 Nucleated RBC % (0.0-0.2) % PT (11.1-14.7) Seconds INR APTT (22.3-36.8) Seconds Sodium (137-145) mmol/L Potassium (3.4-5.0) mmol/L Chloride (98-107) mmol/L Carbon Dioxide (22-30) mmol/L Anion Gap (4-12) mmol/L BUN (9-20) mg/dL Creatinine (0.7-1.3) mg/dL Estim Creat Clear Calc ml/min Estimated GFR (59 - ) Glucose (65-110) mg/dL POC Capillary Glucose (65-105) mg/dl Hemoglobin A1c (<5.7) % Calcium (8.4-10.2) mg/dL Total Bilirubin (0.2-1.3) mg/dL AST (17-59) U/L ALT (6-50) U/L Alkaline Phosphatase (38-126) U/L Troponin I < 0.012 (0.000-0.034) ng/mL Total Protein (6.3-8.2) g/dL Albumin (3.5-5.1) g/dL Triglycerides (<150) mg/dL Cholesterol (0-200) mg/dL LDL Cholesterol Direct mg/dL HDL Direct mg/dL Lipase (23-300) U/L TSH (Reflex) (0.465-4.68) uIU/mL Ethyl Alcohol (<10) mg/dL Imaging Data Attestation: I personally reviewed and interpreted this imaging study as follows: Critical Care Time Critical Care Time Critical Care Time: Yes Total Critical Care Time: 35 Discharge Plan Discharge Clinical Impression: Left-sided headache, Arm paresthesia, left, Left-sided chest pain Patient Disposition: Still a Patient Condition: Stable
[2024-08-31 22:21] LABS: Ethanol 173 mg/dL (<10)
[2024-09-01] VITALS (10 sets, daily range): BP systolic 120–149; BP diastolic 63–76; PULSE 63–82; RESP 16–18; TEMP 36.4–36.6; O2SAT 94–98
--- NOTE | 2024-09-01 | ECG_ITS ---
Test Date: 2024-09-01 00:00:43 Measurements Intervals Tiff Rate: 62 P: 72 MS: 155 QRS: -37 QRSD: 146 T: -2 QT: 436 QTc: 443 Interpretive Statements SINUS RHYTHM LEFT AXIS DEVIATION RIGHT BUNDLE BRANCH BLOCK BASELINE ARTIFACT- I, II, AVR, AVL, AVF ABNORMAL ECG Compared to ECG 08/31/2024 20:45:35 NO SIGNIFICANT CHANGE Electronically Signed On 09-01-2024 07:15:35 CDT by James Desouza D.O.
[2024-09-01 00:25] LABS: Troponin I < 0.012 ng/mL (0.000-0.034)
--- NOTE | 2024-09-01 02:28 | ADMGEN ---
This patient, Jonathan Aguirre, was admitted to Medical Room 240-. Patient/family oriented to hospital policies and general routines including ID bracelet, bed and alarms, visiting hours, pain management, procedures, bathroom and other care routines, personal items, smoking policy, room service/diet, and visiting hours. Information on how to activate the Rapid Response Team has been discussed. Patient/Family are encouraged to report perceived risks to care and to ask questions if they do not understand what they are told or what they should do.
[2024-09-01 02:45] LABS: Cholesterol 215 mg/dL (0-200); HDL Direct 46 mg/dL; Triglycerides 237 mg/dL (<150)
[2024-09-01 02:55] LABS: LDL Cholesterol Direct 109 mg/dL
[2024-09-01 03:13] LABS: Hemoglobin A1C 5.7 % (<5.7)
[2024-09-01 03:32] LABS: Troponin I < 0.012 ng/mL (0.000-0.034)
[2024-09-01 07:31] LABS: Basophils Absolute Auto 0.1 K/mm3 (0.0-0.1); Basophils Percent Auto 1.4 % (0.2-1.2); Eosinophils Absolute Auto 0.7 K/mm3 (0-0.3); Eosinophils Percent Auto 9.4 % (0-4.4); Immature Granulocyte Absolute 0.04 K/mm3 (0.00-0.031); Immature Granulocyte Percent A 0.6 % (0-0.5); Lymphocytes Absolute Auto 3.37 K/mm3 (0.9-3.2); Lymphocytes Percent Auto 48.6 % (18.3-44.2); Mean Corpuscular HGB Conc 32.6 g/dl (32-36); Mean Corpuscular Hemoglobin 31.1 pg (26-34); Mean Corpuscular Volume 95.4 fl (80-100); Mean Platelet Volume 9.9 fl (7.4-10.4); Monocytes Absolute Auto 0.6 K/mm3 (0.1-0.6); Monocytes Percent Auto 8.1 % (2.6-8.5); Neutrophils Absolute Auto 2.2 K/mm3 (1.3-6.7); Neutrophils Percent Auto 31.9 % (45.5-73.1); Platelet Count Result 252 k/mm3 (150-375); Red Blood Count 4.82 M/mm3 (4.6-6.20); Red Cell Distribution Width 13.2 % (11.5-14.5); White Blood Count 6.9 K/mm3 (4.5-10.0)
[2024-09-01 08:07] LABS: Alanine Aminotransferase 24 U/L (6-50); Albumin Level 4.4 g/dL (3.5-5.1); Alkaline Phosphatase 96 U/L (38-126); Anion Gap 13 mmol/L (4-12); Aspartate Amino Transferase 39 U/L (17-59); Bilirubin,Total 0.3 mg/dL (0.2-1.3); Blood Urea Nitrogen 8 mg/dL (9-20); Calcium 9.3 mg/dL (8.4-10.2); Carbon Dioxide 20 mmol/L (22-30); Chloride 105 mmol/L (98-107); Estimated CRCL calculation 76 ml/min; Estimated Glomerular Filt Rate > 60; Glucose 90 mg/dL (65-110); Lipase 340 U/L (23-300); Magnesium 2.3 mg/dL (1.6-2.3); Potassium 4.3 mmol/L (3.4-5.0); Sodium 138 mmol/L (137-145); Total Protein 7.4 g/dL (6.3-8.2)
[2024-09-01 09:51] LABS: Add Urine Microscopic? NO; Appearance Urine Clear (Clear); Bilirubin Urine Negative (Negative); Blood Urine Negative (Negative); Color Urine Yellow (Yellow); Glucose Urine UA Negative (Negative); Ketones Urine Negative (Negative); Leukocyte Esterase Ur Negative LEU/UL (Negative); Nitrate Urine Negative (Negative); Protein Urine Negative (Negative); Specific Grav Ur 1.019 (1.001-1.035); Urobilinogen Urine 0.2 mg/dL (<2.0); pH Urine 6.5 (5.0-9.0)
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
[2024-09-01 15:16] LABS: Prostate Specific Antigen 2.9 ng/mL (< OR = 4.0)
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
[2024-09-01 17:02] LABS: Vitamin D 25 Hydroxy 24.1 ng/mL
[2024-09-01 17:52] LABS: Folic Acid 14.1 ng/mL (2.76->20)
[2024-09-02] VITALS (7 sets, daily range): BP systolic 131–148; BP diastolic 67–72; PULSE 60–80; RESP 17–18; TEMP 36.6–36.8; O2SAT 96–100
--- NOTE | 2024-09-02 | ECHO_ITS ---
Patient Info Name: Jonathan Aguirre Age: 64 years : 1960 Gender: Male Ht: 59 in Wt: 143 lbs BSA: 1.67 m2 HR: 64 bpm BP: 131 / 72 mmHg Heart Rhythm: Sinus Rhythm Technical Quality: Good Exam Date: 09/02/2024 7:02 AM Patient Status: I Admit Date: 09/01/2024 Exam Type: CA echo doppler color flow Complete two-dimensional, color flow and Doppler transthoracic echocardiogram is performed. Staff Referring Physician: Orion Macias Stamping Die Maker Bench: Glendy Adams Attending Provider: Gayle Alfred DO Summary 1. Complete two-dimensional, color flow and Doppler transthoracic echocardiogram is performed. 2. There is normal biventricular size and systolic function. 3. There are no regional wall motion abnormalities. 4. There are no significant valvular abnormalities. Left Ventricle The left ventricle is normal in size and systolic function. Left ventricular ejection fraction is visually estimated to be 60-65%. There are no regional wall motion abnormalities. Right Ventricle The right ventricle is normal in size and systolic function. Left Atria The left atrium is normal size. Right Atria The right atrium is normal size. Atrial Septum The atrial septum visually appears intact. Aortic Valve The aortic valve is trileaflet and opens well. There is mild aortic regurgitation. Pulmonic Valve The pulmonic valve is normal. There is no color Doppler evidence of pulmonic valve regurgitation. Mitral Valve The mitral valve is normal. There is no mitral regurgitation. Tricuspid Valve The tricuspid valve is normal. There is no tricuspid regurgitation. Pericardium/Pleural Pericardium is normal in appearance with no evidence for significant pericardial effusion. Inferior Vena Cava Normal inferior vena cava with >50% collapse upon inspiration consistent with normal right atrial pressure, 3 mmHg. Aorta The aortic root at the level of the sinus of Valsalva measures 3.4 cm in diameter. Left Ventricular Outflow Tract Name Value Normal LVOT 2D LVOT Diameter 2.2 cm LVOT Doppler LVOT Peak Velocity 77 cm/s LVOT Peak Gradient 2 mmHg LVOT Mean Gradient 1 mmHg LVOT VTI 16 cm LVOT VTI/AV VTI Ratio 0.5 LVOT Stroke Volume 64 ml LVOT CO 3.7 l/min LVOT CI 2.2 l/min/m2 Mitral Valve Name Value Normal MV Diastolic Function MV E Peak Velocity 47 cm/s MV A Peak Velocity 70 cm/s MV E/A 0.7 MV Decel Time (PW) 210 ms MV Annular TDI MV E/e' (Septal) 7.7 MV E/e' (Lateral) 5.1 MV E/e' (Average) 6.4 Tricuspid Valve Name Value Normal Estimated PAP/RSVP RA Pressure 3 mmHg <=5 TV Annular TDI TV Lateral Sylvie s' Velocity 12.4 cm/s >=9.5 Aortic Valve Name Value Normal AV Doppler AV Peak Velocity 143 cm/s AV Peak Gradient 8 mmHg AV Mean Gradient 4 mmHg AV VTI 30 cm AV Area (Cont Eq VTI) 2.1 cm2 >=3.0 AV Area (Cont Eq Kendall) 2.1 cm2 AV DI (Kendall) 0.54 AV Regurgitation 2D LVOT Area 3.9 cm2 Ventricles Name Value Normal LV Dimensions 2D/MM LVOT Diameter 2.2 cm LV Fractional Shortening/Ejection Fraction 2D/MM LV Diastolic Volume (4C MOD) 104 ml LV EF (4C MOD) 58 % LV Diastolic Volume (2C MOD) 116 ml LV EF (2C MOD) 68 % LV Diastolic Volume (BP MOD) 114 ml 62-150 LV Diastolic Volume Index (BP MOD) 68 ml/m2 34-74 LV Systolic Volume (BP MOD) 40 ml 21-61 LV Systolic Volume Index (BP MOD) 24 ml/m2 11-31 LV EF (BP MOD) 65 % 52-72 LV Diastolic Length (4C) 8.5 cm LV Systolic Length (4C) 7.1 cm LV Stroke Volume (4C MOD) 60 ml Atria Name Value Normal LA Dimensions LA Volume (4C A-L) 42 ml LA Volume (BP A-L) 46 ml RA Dimensions RA Systolic Major Paterson Length (4C) 4.6 cm 2.1-2.7 RA Area (4C) 14.7 cm2 <=18.0 Report Signatures
[2024-09-02 04:58] LABS: Basophils Absolute Auto 0.1 K/mm3 (0.0-0.1); Basophils Percent Auto 0.9 % (0.2-1.2); Eosinophils Absolute Auto 0.5 K/mm3 (0-0.3); Eosinophils Percent Auto 7.6 % (0-4.4); Hematocrit 44.9 % (42.0-52.0); Hemoglobin 14.5 g/dL (14.0-18.0); Immature Granulocyte Absolute 0.02 K/mm3 (0.00-0.031); Immature Granulocyte Percent A 0.3 % (0-0.5); Mean Corpuscular HGB Conc 32.3 g/dl (32-36); Mean Corpuscular Hemoglobin 30.9 pg (26-34); Mean Corpuscular Volume 95.5 fl (80-100); Mean Platelet Volume 9.9 fl (7.4-10.4); Monocytes Absolute Auto 0.7 K/mm3 (0.1-0.6); Monocytes Percent Auto 10.6 % (2.6-8.5); Neutrophils Absolute Auto 2.8 K/mm3 (1.3-6.7); Neutrophils Percent Auto 42.6 % (45.5-73.1); Platelet Count Result 220 k/mm3 (150-375); Red Cell Distribution Width 13.2 % (11.5-14.5); White Blood Count 6.6 K/mm3 (4.5-10.0)
[2024-09-02 05:31] LABS: Alanine Aminotransferase 21 U/L (6-50); Albumin Level 3.9 g/dL (3.5-5.1); Alkaline Phosphatase 84 U/L (38-126); Anion Gap 5 mmol/L (4-12); Aspartate Amino Transferase 26 U/L (17-59); Bilirubin,Total 0.3 mg/dL (0.2-1.3); Blood Urea Nitrogen 19 mg/dL (9-20); Carbon Dioxide 25 mmol/L (22-30); Chloride 107 mmol/L (98-107); Estimated CRCL calculation 76 ml/min; Estimated Glomerular Filt Rate > 60; Glucose 112 mg/dL (65-110); Magnesium 2.4 mg/dL (1.6-2.3); Potassium 4.1 mmol/L (3.4-5.0); Sodium 137 mmol/L (137-145); Total Protein 6.7 g/dL (6.3-8.2)
[2024-09-02] MEDS: CHOLECALCIFEROL (VITAMIN D3) 25 MCG (1,000 UNITS) TABLET PO (08:37)
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
[2024-09-02 09:40] LABS: Lipase 171 U/L (23-300)
--- NOTE | 2024-09-02 11:53 | WPDNEUROPN ---
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 Where this is considered nonspecific interictal abnormality the possibility of partial complex seizure would be a consideration. However his alcohol level was high at 173 upon admission which can also lead to change in mental status. Subsequently patient told the hospitalist that the spell and after that he was drinking. Based upon this discussion he could be started on anti convulsant. If he agrees to it Keppra 750 mg twice a day can be begun and I shall see him for follow-up in 3 months time. he should not drive for 6 months. He should also stop drinking alcohol. We did discuss that to sometimes it is the possible to start anticonvulsant after he had 2 spells but the patient's safety important and hence the above discussion should be kept in mind. Subjective Date/time seen: 09/02/24 11:53 Interval history: The patient is doing fairly well and denies any additional new symptoms. Upon further questioning it appears that he did have an episode of confusion and he had alcohol after that. His alcohol level was high at 173 at the time of admission. CT angiogram of the head and neck did not show any significant abnormalities. MRI of the brain did not show any significant abnormality. Review of Systems Review of Systems: All systems reviewed & are unremarkable except as noted in HPI and below Exam Narrative: Fully conscious alert oriented to self time place and person. Speech is fluent and articulate. No aphasia or dysarthria. Examination of cranial nerves shows no facial asymmetry. Extraocular movements intact. Cranial nerves within normal limits. Normal strength in both upper and lower limbs. No involuntary movements are seen. Objective Data Vital Signs Vital Signs: Vital Signs - 24 hr 09/01/24 16:00 09/01/24 17:16 09/01/24 19:41 Temperature 97.9 F 97.9 F Pulse Rate 71 63 66 Respiratory Rate 16 18 Blood Pressure 147/66 H 142/69 H Pulse Oximetry 94 98 Oxygen Delivery 09/01/24 20:00 09/02/24 00:00 09/02/24 04:00 Temperature Pulse Rate 63 80 63 Respiratory Rate Blood Pressure Pulse Oximetry Oxygen Delivery 09/02/24 04:39 09/02/24 07:53 09/02/24 08:00 Temperature 98.3 F Pulse Rate 64 61 Respiratory Rate 17 Blood Pressure 131/72 Pulse Oximetry 97 96 Oxygen Delivery Room Air 09/02/24 08:35 Temperature Pulse Rate Respiratory Rate Blood Pressure Pulse Oximetry Oxygen Delivery Room Air Intake/Output Intake/Output: Intake & Output 08/30/24 08/31/24 09/01/24 09/02/24 23:59 23:59 23:59 23:59 Intake Total 832 430 Output Total 200 Balance 632 430 Meds/Results Medications: Active Medications Generic Name Dose Route Start Last Admin Trade Name Freq PRN Reason Stop Dose Admin Acetaminophen 650 mg 09/01/24 01:40 Acetaminophen 325 Mg Tablet PO Q4H PRN Mild Pain (1-3) or Fever Albuterol 2 puff 09/01/24 14:29 Albuterol Sulfate (*Sp) Aerosol 1 Puff INHALATION Q6HRT PRN Shortness Of Breath Perflutren Lipid Microsphere 0 ml 09/01/24 07:27 Perflutren Lipid Microspheres 1.5 Ml Vial Diluted To 10 Ml Total Volume IV PUSH 09/04/24 07:27 ONCE PRN adequate visualization Protocol Polyethylene Glycol 17 gm 09/01/24 14:24 Polyethylene Glycol 3350 17 Gm Powd.Pack PO QAM PRN Constipation Vitamin D 25 mcg 09/02/24 09:00 09/02/24 08:37 Cholecalciferol (Vitamin D3) 25 Mcg (1,000 Units) Tablet PO 25 mcg DAILY ZACKERY Administration Radiology Results: ITS Impressions Chest X-Ray 09/01/24 06:14 Impression: No acute abnormality. Chest/Abdomen/Pelvis CTA 09/01/24 06:19 Impression: No acute abnormality. Moderate emphysema. Enlarged prostate gland. Head CT 09/01/24 06:22 Impression: No significant abnormality seen. Head/Neck CTA 09/01/24 06:22 Impression: No significant abnormality identified. Brain MRI 09/01/24 12:31 IMPRESSION: Normal exam. Labs Labs: Laboratory Results - last 24 hr 09/01/24 09/01/24 09/02/24 02:51 07:30 04:04 WBC 6.6 RBC 4.70 Hgb 14.5 Hct 44.9 MCV 95.5 MCH 30.9 MCHC 32.3 RDW 13.2 Plt Count 220 MPV 9.9 Immature Gran % (Auto) 0.3 Neut % (Auto) 42.6 L Lymph % (Auto) 38.0 [place] % (Auto) 10.6 H Eos % (Auto) 7.6 H Baso % (Auto) 0.9 Lymph # (Auto) 2.50 [place] # (Auto) 0.7 H Eos # (Auto) 0.5 H Baso # (Auto) 0.1 Abs Immat Gran (auto) 0.02 Absolute Neuts (auto) 2.8 Absolute Nucleated RBC 0.000 Nucleated RBC % 0.0 Sodium 137 Potassium 4.1 Chloride 107 Carbon Dioxide 25 Anion Gap 5 BUN 19 D Creatinine 0.79 Estim Creat Clear Calc 76 Estimated GFR > 60 Glucose 112 H Calcium 9.0 Magnesium 2.4 H Total Bilirubin 0.3 AST 26 ALT 21 Alkaline Phosphatase 84 Total Protein 6.7 Albumin 3.9 Lipase 171 Prostate Specific Ag 2.9 Vitamin B12 488.0 Vitamin D 25-Hydroxy 24.1 Folate 14.1
--- NOTE | 2024-09-02 12:01 | PM.IMPN ---
Subjective Date/time seen: 09/02/24 12:01 Review of Systems Review of Systems: All systems reviewed & are unremarkable except as noted in HPI and below Objective Data Vital Signs Vital Signs: Vital Signs - 24 hr 09/01/24 16:00 09/01/24 17:16 09/01/24 19:41 Temperature 97.9 F 97.9 F Pulse Rate 71 63 66 Respiratory Rate 16 18 Blood Pressure 147/66 H 142/69 H Pulse Oximetry 94 98 Oxygen Delivery 09/01/24 20:00 09/02/24 00:00 09/02/24 04:00 Temperature Pulse Rate 63 80 63 Respiratory Rate Blood Pressure Pulse Oximetry Oxygen Delivery 09/02/24 04:39 09/02/24 07:53 09/02/24 08:00 Temperature 98.3 F Pulse Rate 64 61 Respiratory Rate 17 Blood Pressure 131/72 Pulse Oximetry 97 96 Oxygen Delivery Room Air 09/02/24 08:35 Temperature Pulse Rate Respiratory Rate Blood Pressure Pulse Oximetry Oxygen Delivery Room Air Intake/Output Intake/Output: Intake & Output 08/30/24 08/31/24 09/01/24 09/02/24 23:59 23:59 23:59 23:59 Intake Total 832 430 Output Total 200 Balance 632 430 Meds/Results Medications: Active Medications Generic Name Dose Route Start Last Admin Trade Name Freq PRN Reason Stop Dose Admin Acetaminophen 650 mg 09/01/24 01:40 Acetaminophen 325 Mg Tablet PO Q4H PRN Mild Pain (1-3) or Fever Albuterol 2 puff 09/01/24 14:29 Albuterol Sulfate (*Sp) Aerosol 1 Puff INHALATION Q6HRT PRN Shortness Of Breath Perflutren Lipid Microsphere 0 ml 09/01/24 07:27 Perflutren Lipid Microspheres 1.5 Ml Vial Diluted To 10 Ml Total Volume IV PUSH 09/04/24 07:27 ONCE PRN adequate visualization Protocol Polyethylene Glycol 17 gm 09/01/24 14:24 Polyethylene Glycol 3350 17 Gm Powd.Pack PO QAM PRN Constipation Vitamin D 25 mcg 09/02/24 09:00 09/02/24 08:37 Cholecalciferol (Vitamin D3) 25 Mcg (1,000 Units) Tablet PO 25 mcg DAILY ZACKERY Administration Radiology Results: ITS Impressions Chest X-Ray 09/01/24 06:14 Impression: No acute abnormality. Chest/Abdomen/Pelvis CTA 09/01/24 06:19 Impression: No acute abnormality. Moderate emphysema. Enlarged prostate gland. Head CT 09/01/24 06:22 Impression: No significant abnormality seen. Head/Neck CTA 09/01/24 06:22 Impression: No significant abnormality identified. Brain MRI 09/01/24 12:31 IMPRESSION: Normal exam. Labs Labs: Laboratory Results - last 24 hr 09/01/24 09/01/24 09/02/24 02:51 07:30 04:04 WBC 6.6 RBC 4.70 Hgb 14.5 Hct 44.9 MCV 95.5 MCH 30.9 MCHC 32.3 RDW 13.2 Plt Count 220 MPV 9.9 Immature Gran % (Auto) 0.3 Neut % (Auto) 42.6 L Lymph % (Auto) 38.0 [place] % (Auto) 10.6 H Eos % (Auto) 7.6 H Baso % (Auto) 0.9 Lymph # (Auto) 2.50 [place] # (Auto) 0.7 H Eos # (Auto) 0.5 H Baso # (Auto) 0.1 Abs Immat Gran (auto) 0.02 Absolute Neuts (auto) 2.8 Absolute Nucleated RBC 0.000 Nucleated RBC % 0.0 Sodium 137 Potassium 4.1 Chloride 107 Carbon Dioxide 25 Anion Gap 5 BUN 19 D Creatinine 0.79 Estim Creat Clear Calc 76 Estimated GFR > 60 Glucose 112 H Calcium 9.0 Magnesium 2.4 H Total Bilirubin 0.3 AST 26 ALT 21 Alkaline Phosphatase 84 Total Protein 6.7 Albumin 3.9 Lipase 171 Prostate Specific Ag 2.9 Vitamin B12 488.0 Vitamin D 25-Hydroxy 24.1 Folate 14.1
--- NOTE | 2024-09-02 14:18 | P.DS_ITS ---
DS: Admitting Diagnosis Discharge Date 09/02/2024 Admitting Diagnosis chest pain. 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 EKG SR 62 with bundle branch block QTc 443. Trop <0.012 x 2. Ethyl Alcohol level 173 mg/dL on admission. Chest X-ray showed no acute abnormality. Chest, abdomen. and pelvis with contrast: no acute abnormality, moderate emphysema, and enlarged prostate gland. CTA head and neck findings:CTA neck findings: Bilateral vertebral arteries are patent. Bilateral common carotid, internal carotid, and external carotid arteries are patent. There are calcified plaques at the proximal left internal carotid artery, without significant stenosis. There are also calcified plaques at the proximal right internal carotid artery, again without significant stenosis. No large vessel occlusion. No aneurysm. The proximal right internal carotid artery demonstrates 0% stenosis relative to the normal distal artery lumen diameter. The proximal left internal carotid artery demonstrates 0% stenosis relative to the normal distal artery lumen diameter. Moderate emphysema in the lung apices. CTA head findings: Distal vertebral arteries, basilar artery, and posterior cerebral arteries are patent. Distal internal carotid arteries, middle cerebral arteries, and anterior cerebral arteries are patent. No large vessel occlusion or stenosis. No aneurysm. Impression: No significant abnormality identified. Brain MRI normal. UA normal. EEG: This is a mild abnormal EEG due to presence of focal slowing and sharp activity right mid temporal area. Focal slowing may raise possibility of underlying structural lesion. Sharp transients are considered nonspecific focal interictal abnormality. Clinical and radiographic correlation are recommended. Neurology consulted. Keppra 750 mg PO q 12 started. No driving 6 months. Encourage smoking and alcohol cessations. ASCVD score 18.3%. Started on Atorvastatin 40 mg PO qhs. Echocardiogram: Summary 1. Complete two-dimensional, color flow and Doppler transthoracic echocardiogram is performed. 2. There is normal biventricular size and systolic function. 3. There are no regional wall motion abnormalities. 4. There are no significant valvular abnormalities. Vitamin D deficiency started on Vitamin D3 1,000 mg PO daily. Patient to follow up with neurology in 3 months. Status at Discharge Functional status at discharge: independent ambulation Overall status at discharge: patient is progressing back to baseline Time Spent with Patient Time attestation: Total time spent providing and/or coordinating discharge services: Time spent: Greater than 30 minutes Exam Const: General: comfortable and no acute distress Resp: Effort & Inspection: normal respiratory effort Auscultation: clear to auscultation bilaterally Cardio: Rate: regular rate Rhythm: regular rhythm Other: Telemetry- SR 62. GI: GI Palp: Yes Soft to palpation Auscultation: normal bowel sounds Extrem: General: no pedal edema Psych: Mental Status: mental status grossly normal Affect: normal affect DS: Data Data Completed and Pending Labs on day of discharge: Labs from last 24 hours 09/02/24 09/01/24 09/01/24 04:04 17:04 07:30 WBC 6.6 RBC 4.70 Hgb 14.5 Hct 44.9 MCV 95.5 MCH 30.9 MCHC 32.3 RDW 13.2 Plt Count 220 MPV 9.9 Immature Gran % (Auto) 0.3 Neut % (Auto) 42.6 L Lymph % (Auto) 38.0 [place] % (Auto) 10.6 H Eos % (Auto) 7.6 H Baso % (Auto) 0.9 Lymph # (Auto) 2.50 [place] # (Auto) 0.7 H Eos # (Auto) 0.5 H Baso # (Auto) 0.1 Abs Immat Gran (auto) 0.02 Absolute Neuts (auto) 2.8 Absolute Nucleated RBC 0.000 Nucleated RBC % 0.0 Sodium 137 Potassium 4.1 Chloride 107 Carbon Dioxide 25 Anion Gap 5 BUN 19 D Creatinine 0.79 Estim Creat Clear Calc 76 Estimated GFR > 60 Glucose 112 H Calcium 9.0 Magnesium 2.4 H Total Bilirubin 0.3 AST 26 ALT 21 Alkaline Phosphatase 84 Total Protein 6.7 Albumin 3.9 Lipase 171 Prostate Specific Ag Vitamin B1 Pending Vitamin B6 Pending Vitamin B12 488.0 Vitamin D 25-Hydroxy Folate 14.1 09/01/24 02:51 WBC RBC Hgb Hct MCV MCH MCHC RDW Plt Count MPV Immature Gran % (Auto) Neut % (Auto) Lymph % (Auto) [place] % (Auto) Eos % (Auto) Baso % (Auto) Lymph # (Auto) [place] # (Auto) Eos # (Auto) Baso # (Auto) Abs Immat Gran (auto) Absolute Neuts (auto) Absolute Nucleated RBC Nucleated RBC % Sodium Potassium Chloride Carbon Dioxide Anion Gap BUN Creatinine Estim Creat Clear Calc Estimated GFR Glucose Calcium Magnesium Total Bilirubin AST ALT Alkaline Phosphatase Total Protein Albumin Lipase Prostate Specific Ag 2.9 Vitamin B1 Vitamin B6 Vitamin B12 Vitamin D 25-Hydroxy 24.1 Folate Discharge Plan Discharge Attending physician on discharge: Senthil Friedman Consulting providers: Samira Lopez Discharging Clinician: Irasema Powell Anticipated Discharge Date/Time: 09/02/24 14:15 Patient Disposition: Home Activity: may shower and no driving Diet: heart healthy Discharge Instructions: * Set up appointment with your primary in one week. * Take blood pressures daily and record. Take recordings to primary visit. Notify primary if >140/90. * NO DRIVING FOR 6 MONTHS, UNTIL CLEARED BY NEUROLOGY. * If you have any further seizures or symptoms notify Dr. Lopez. * Work on smoking and alcohol cessation. * Take Levetiracetam (Keppra) as directed. * Echocardiogram: Summary 1. Complete two-dimensional, color flow and Doppler transthoracic echocardiogram is performed. 2. There is normal biventricular size and systolic function. 3. There are no regional wall motion abnormalities. 4. There are no significant valvular abnormalities. * EEG: This is a mild abnormal EEG due to presence of focal slowing and sharp activity right mid temporal area. Focal slowing may raise possibility of underlying structural lesion. Sharp transients are considered nonspecific focal interictal abnormality. * Brain MRI: normal. * Do not take more than 4,000 mg of Tylenol a day. Thank you for entrusting [facility] with your healthcare! Patient Instructions: Antibiotic Form, Atorvastatin (By mouth), Levetiracetam ( By mouth), How to Stop Smoking (DC), Cigarette Smoking and Your Health (GEN), Emphysema (DC), DASH Eating Plan (DC), Hypertension (DC), New-Onset Seizure in Adults (DC), Vitamin D Deficiency (GEN), Alcohol Dependence (DC) Patient Language: Slovenian Stand Alone Forms: General Discharge Information Follow-up/Referrals: Samira Lopez MD [Physician] - Call for Appointment (3 months) Discharge Medications: New atorvastatin 40 mg Tablet 40 mg PO HS Qty: 30 0RF cholecalciferol (vitamin D3) 25 mcg (1,000 unit) Tablet 25 mcg PO DAILY Qty: 30 0RF acetaminophen 325 mg Tablet 650 mg PO Q4H PRN (Reason: Mild Pain (1-3) Or Fever) Qty: 60 0RF albuterol sulfate [Ventolin HFA] 90 mcg/actuation HFA aerosol inhaler 2 puff inhalation QID PRN (Reason: shortness of breath or wheezing) Qty: 8.5 0RF levetiracetam 250 mg Tablet 750 mg PO Q12HR Qty: 180 2RF Discontinued ibuprofen 200 mg capsule 400 mg PO Q4H PRN (Reason: pain) Date of admission: 09/01/24 01:40 Primary Care Provider: Sabra Solis Admitting Provider: Gayle Alfred Attending physician on admission: Gayle Alfred Condition: Improved Hospitalist MIPS Heart Failure (Exclusion) Patient has history of Heart Transplant or Left Ventricular Assistive Device?: N o IF YES, STOP HERE Heart Failure (Qualifier) Patient has current or prior documentation of LVEF less than or equal to 40%, or mod/servere depressed LVSF?: No IF NO, STOP HERE
[2024-09-02] MEDS: levETIRAcetam Tablet 250 MG, levETIRAcetam Tablet 500 MG 750 MG PO (14:37)
[2024-09-04 17:28] LABS: Vitamin B6 9.6 ng/mL (2.1-21.7)
[2024-09-05 08:59] LABS: Vitamin B1 17 nmol/L (8-30)
== END 2024-09-02 14:50 | disposition home or self-care (01) ==
LOC: ANHED 22:13 → ANH2MED 09-01 06:58
PROVIDERS: Nurse Practitioner Family; Psychiatry & Neurology Neurology; Admitting Provider Internal Medicine; Emergency Provider Student in an Organized Health Care Education/Training Program; PCP Nurse Practitioner Family; Visit Provider General Practice
DX: F44.89 Other dissociative and conversion disorders (principal); R56.9 Unspecified convulsions; E55.9 Vitamin D deficiency, unspecified; J43.9 Emphysema, unspecified; F10.20 Alcohol dependence, uncomplicated; Y90.6 Blood alcohol level of 120-199 mg/100 ml; F17.210 Nicotine dependence, cigarettes, uncomplicated; N40.0 Benign prostatic hyperplasia without lower urinary tract symptoms; R74.8 Abnormal levels of other serum enzymes; R94.01 Abnormal electroencephalogram [EEG]; R07.89 Other chest pain
CPT/HCPCS: 36415; 70450; 70496; 70498; 70553; 71045; 71275; 74174; 80053; 80061; 81003; 82077; 82306; 82607; 82746; 82948; 83036; 83690; 83735; 84153; 84207; 84425; 84443; 84484; 85025; 85610; 85730; 93005; 93306; 95816; 96374; 99285; A9270; A9579; G0378; Q9967